=== PATIENT | female | born 1985 | race American Indian/Alaskan Native ===

== ENCOUNTER 2017-08-10 12:05 | Emergency (ER) | payer MEDICAID, OTHER ==
[2017-08-10 13:35] LABS: HCG,QUALITATIVE URINE NEGATIVE (NEGATIVE)
[2017-08-10 13:40] LABS: SQUAMOUS EPITHIAL < 1 /hpf (0-5); URINE BACTERIA RARE (<OCC)
[2017-08-10] MEDS ORDERED: Sodium Chloride 0.9% 1,000 ML IV ONE (14:01)
[2017-08-10] MEDS ORDERED: Iohexol 240 (50 ml) PO STA (14:01)
[2017-08-10 14:02] LABS: URINE BILIRUBIN NEGATIVE (NEGATIVE); URINE BLOOD NEGATIVE (NEGATIVE); URINE CLARITY Clear (Clear); URINE COLOR Yellow (YELLOW); URINE GLUCOSE (UA) NORMAL (Normal); URINE LEUKOCYTE ESTERASE NEG Leu/uL (Negative); URINE NITRATE NEGATIVE (NEGATIVE); URINE PROTEIN 1+ mg/dL (NEGATIVE)
--- NOTE | 2017-08-10 14:04 | C.PDOC ---
History Of Present Illness 32-year-old female, presents to the emergency department with multiple complaints. Patient states she has been experiencing three day duration of fever and body aches. Patient has not taken any medication for symptoms. Secondary complaint is pelvic pain that started a few months ago. Patient states she was seen by her doctor 04/16, and had an ultrasound which came back "normal." Patient is also complaining of rectal pain, that is intermittent for a few months. Denies any GI bleeding, nausea/vomiting, diarrhea, pain with BM, history of fibroids, dizziness, back pain, incontinence, or any other associated symptoms. No other complaints at this time. Time Seen by Provider: 08/10/17 12:46 Chief Complaint (Nursing): Flu-like Symptoms History Per: Patient History/Exam Limitations: no limitations Onset/Duration Of Symptoms: Days Past Medical History Reviewed: Historical Data, Nursing Documentation, Vital Signs Vital Signs: Last Vital Signs Temp 99.3 F 08/10/17 13:34 Pulse 99 H 08/10/17 16:15 Resp 20 08/10/17 16:15 BP 106/74 08/10/17 16:15 Pulse Ox 98 08/10/17 16:15 - Medical History PMH: Diabetes, Gastritis Family History: States: No Known Family Hx - Social History Hx Tobacco Use: No Hx Alcohol Use: No Hx Substance Use: No - Immunization History Hx Tetanus Toxoid Vaccination: No Hx Influenza Vaccination: No Hx Pneumococcal Vaccination: No Review Of Systems Except As Marked, All Systems Reviewed And Found Negative. Constitutional: Positive for: Fever, Chills, Malaise Cardiovascular: Negative for: Chest Pain Respiratory: Negative for: Shortness of Breath Gastrointestinal: Positive for: Rectal Pain. Negative for: Nausea, Vomiting Genitourinary: Positive for: Pelvic Pain Musculoskeletal: Positive for: Back Pain Neurological: Negative for: Weakness, Numbness, Headache, Dizziness Physical Exam - Physical Exam Appears: Non-toxic, No Acute Distress Skin: Warm, Dry, No Rash Head: Atraumatic, Normacephalic Eye(s): bilateral: Normal Inspection, PERRL Nose: Normal Oral Mucosa: Moist Lips: Normal Appearing Neck: Normal ROM Chest: Symmetrical Cardiovascular: Rhythm Regular, No Murmur Respiratory: Normal Breath Sounds, No Accessory Muscle Use Gastrointestinal/Abdominal: Soft, No Tenderness, No Guarding, No Rebound Rectal: Normal Exam, No Tenderness Back: No Paraspinal Tenderness Extremity: Normal ROM Neurological/Psych: Oriented x3, Normal Speech ED Course And Treatment - Laboratory Results Result Diagrams: 08/10/17 14:20 08/10/17 14:20 O2 Sat by Pulse Oximetry: 97 (on RA) Pulse Ox Interpretation: Normal Reevaluation Time: 17:07 Reassessment Condition: Improved (CT NO ACUTE FINDINGS. EXAM C/F INFLUENZA LIKE ILLNESS. CT REPORT GIVEN PT ADVISED NEED FOR GI/OBGYN) Disposition Counseled Patient/Family Regarding: Studies Performed, Diagnosis, Need For Followup, Rx Given - Disposition Referrals: [facility] [Outside] [facility] [Outside] Disposition: HOME/ ROUTINE Disposition Time: 17:08 Condition: IMPROVED Additional Instructions: YOUR ER TESTS ARE NORMAL. FOLLOW UP WITH A GI AND/OR OBGYN FOR FURTHER EVALUATION. Prescriptions: Oseltamivir [Tamiflu] 75 mg PO BID #9 cap Instructions: Influenza (ED), Pelvic Pain in Women (ED) Forms: [employer] ([place]er) - Clinical Impression Clinical Impression: Pelvic pain, Influenza-like illness, Rectal pain - Scribe Statement The provider has reviewed the documentation as recorded by the Scribe (Smooth Cooper) All medical record entries made by the Scribe were at my direction and personally dictated by me. I have reviewed the chart and agree that the record accurately reflects my personal performance of the history, physical exam, medical decision making, and the department course for this patient. I have also personally directed, reviewed, and agree with the discharge instructions and disposition.
[2017-08-10] MEDS ORDERED: Iohexol 240 (50 ml) ONE (14:08)
[2017-08-10] MEDS ORDERED: Sodium Chloride 0.9% 1,000 ML ONE (14:09)
[2017-08-10 14:23] LABS: BASO % 0.5 % (0.0-2.0); EOS % 0.2 % (0.0-4.0); HEMOGLOBIN 11.6 g/dL (11.0-16.0); LYMPH # 1.5 K/uL (1.0-4.3); LYMPH % 17.9 % (20.0-40.0); MEAN CORPUSCULAR HEMOGLOBIN 27.3 pg (27.0-31.0); MEAN CORPUSCULAR HGB CONC 32.5 g/dL (33.0-37.0); MEAN PLATELET VOLUME 8.1 fL (7.2-11.7); MONO # 0.8 K/uL (0.0-0.8); MONO % 10.1 % (0.0-10.0); NEUT # 5.9 K/uL (1.8-7.0); NEUT % 71.3 % (50.0-75.0); RBC 4.26 Mil/uL (3.80-5.20); RED CELL DISTRIBUTION WIDTH 14.5 % (11.5-14.5); WHITE BLOOD COUNT 8.3 K/uL (4.8-10.8)
[2017-08-10 14:37] LABS: ALBUMIN 3.9 g/dL (3.5-5.0); ALT/SGPT 21 U/L (9-52); AST/SGOT 36 U/L (14-36); BLOOD UREA NITROGEN 11 mg/dL (7-17); CALCIUM 8.2 mg/dl (8.6-10.4); GFR AFRICAN-AMERICAN > 60; GFR NON-AFRICAN AMERICAN > 60; LIPASE 33 U/L (23-300)
[2017-08-10] MEDS ORDERED: Iodixanol 320 MG/ML 100 ML BOTTLE IV ONE (15:49)
--- NOTE | 2017-08-10 16:50 | CT ---
PROCEDURE: CT Abdomen and Pelvis with oral and IV contrast. HISTORY: abd pain PELVIC, RECTAL COMPARISON: None available. TECHNIQUE: Contiguous axial images of the abdomen and pelvis. Oral and IV contrast was administered. Coronal and Sagittal reformats generated and reviewed. Contrast dose: 100 cc Visipaque IV. Radiation dose: Total exam DLP = 561.48 mGy-cm. This CT exam was performed using one or more of the following dose reduction techniques: Automated exposure control, adjustment of the mA and/or kV according to patient size, and/or use of iterative reconstruction technique. FINDINGS: LOWER THORAX: No visible consolidation, pleural effusion, or pneumothorax. LIVER: Unremarkable. GALLBLADDER AND BILE DUCTS: Unremarkable. PANCREAS: Unremarkable. SPLEEN: Unremarkable. ADRENALS: Unremarkable. KIDNEYS AND URETERS: The kidneys enhance symmetrically. No hydronephrosis or obstructing renal calculus. Too small to characterize right renal hypodensity; statistically likely a cyst. BLADDER: The urinary bladder appears unremarkable. REPRODUCTIVE: Uterus is present. 3.0 cm right ovarian cyst. APPENDIX: The appendix appears within normal limits of caliber. No secondary signs of acute appendicitis. BOWEL: The stomach is nondistended. The bowel loops appear within normal limits of caliber without evidence of intestinal obstruction. PERITONEUM: No significant free fluid. No definite free air. LYMPH NODES: No bulky lymphadenopathy identified. VASCULATURE: No aortic aneurysm. BONES: No acute osseous abnormality is detected. OTHER FINDINGS: 4.7 cm anterior abdominal wall hernia contains bowel without obstruction. IMPRESSION: 3.0 cm probable right ovarian cyst. Suggest pelvic ultrasound for further evaluation if indicated. 4.7 cm anterior abdominal wall hernia contains bowel without obstruction.
[2017-08-10 17:28] VITALS: BP 102/68; PULSE 89; RESP 18; TEMP 98.9; O2SAT 98
== END 2017-08-10 17:31 | disposition home or self-care (01) ==
LOC: C.ER 12:05
DX: J11.1 Influenza due to unidentified influenza virus with other respiratory manifestations (principal); R10.2 Pelvic and perineal pain; K62.89 Other specified diseases of anus and rectum
CPT/HCPCS: 74177; 80053; 81001; 83690; 84703; 85025; 87804; 96361; 96374; 99285; J1885; J7040; Q9966; Q9967

== ENCOUNTER 2017-08-21 09:37 | Day surgery (SDC) | payer OTHER ==
[2017-08-21] MEDS ORDERED: Propofol 10 mg/ml Inj (20 ML) ONE (10:47)
[2017-08-21 14:25] VITALS: TEMP 98; O2SAT 100
[2017-08-21 14:32] VITALS: BP 110/60; PULSE 70; RESP 21
== END 2017-08-21 12:20 | disposition home or self-care (01) ==
LOC: C.ENDO 09:37
PROVIDERS: ATTEND Internal Medicine
DX: K25.9 Gastric ulcer, unspecified as acute or chronic, without hemorrhage or perforation (principal); K44.9 Diaphragmatic hernia without obstruction or gangrene; K31.9 Disease of stomach and duodenum, unspecified; K29.60 Other gastritis without bleeding; R10.13 Epigastric pain; K42.9 Umbilical hernia without obstruction or gangrene; N83.201 Unspecified ovarian cyst, right side
CPT/HCPCS: 43239; 84703; 88305; J2001; J2704

== ENCOUNTER 2017-12-31 21:03 | Emergency (ER) | payer MEDICAID, OTHER ==
[2017-12-31 21:21] VITALS: RESP 16; O2SAT 100
[2017-12-31 21:53] LABS: HCG,QUALITATIVE URINE POSITIVE (NEGATIVE)
[2017-12-31] MEDS ORDERED: Alum-Mag Hydrox-Simethicone Susp (30 mL) PO STA (21:53)
--- NOTE | 2017-12-31 21:54 | C.PDOC ---
History Of Present Illness 32 year old female presents to the ED c/o vague epigastric pain for the past several months. Patient thinks she might be , patient reports she had a positive test at home. Patient states once a month she feel nauseous associated with an episode of vomiting. Patient denies fever, chills, diarrhea, lower abdominal pain, dysuria, hematuria, vaginal bleeding, vaginal discharge. Chief Complaint (Nursing): Abdominal Pain History Per: Patient History/Exam Limitations: no limitations Onset/Duration Of Symptoms: Days Current Symptoms Are (Timing): Still Present Severity: Mild Pain Scale Rating Of: 3 Location Of Pain/Discomfort: Epigastric Radiation Of Pain To:: None Quality Of Discomfort: "Pain" Associated Symptoms: Nausea, Vomiting Exacerbating Factors: None Alleviating Factors: None Recent travel outside of the [place]: No Additional History Per: Patient Abnormal Vaginal Bleeding: No Past Medical History Reviewed: Historical Data, Nursing Documentation, Vital Signs Vital Signs: Last Vital Signs Temp 98.7 F 12/31/17 22:43 Pulse 82 12/31/17 22:43 Resp 16 12/31/17 22:43 BP 110/78 12/31/17 22:43 Pulse Ox 100 12/31/17 22:43 - Medical History PMH: Diabetes, Gastritis, Migraine Denies: Chronic Kidney Disease Surgical History: No Surg Hx Family History: States: Unknown Family Hx - Social History Hx Tobacco Use: No Hx Alcohol Use: Yes Hx Substance Use: No - Immunization History Hx Tetanus Toxoid Vaccination: No Hx Influenza Vaccination: No Hx Pneumococcal Vaccination: No Review Of Systems Constitutional: Negative for: Fever, Chills Cardiovascular: Negative for: Chest Pain Respiratory: Negative for: Cough, Shortness of Breath Gastrointestinal: Positive for: Nausea, Vomiting, Abdominal Pain. Negative for : Diarrhea Genitourinary: Negative for: Dysuria, Hematuria, Vaginal Discharge, Vaginal Bleeding Musculoskeletal: Negative for: Back Pain Physical Exam - Physical Exam Appears: Non-toxic, No Acute Distress Skin: Normal Color, Warm, Dry Head: Atraumatic, Normacephalic Eye(s): bilateral: Normal Inspection Oral Mucosa: Moist Neck: Normal ROM, Supple Chest: Symmetrical Cardiovascular: Rhythm Regular, No Murmur Respiratory: Normal Breath Sounds, No Rales, No Rhonchi, No Wheezing Gastrointestinal/Abdominal: Soft, Tenderness (mild subjective epigastric), No Mass, No Guarding, No Rebound, Other (protuberant correlating with second trimester ) Extremity: Normal ROM, No Tenderness, No Swelling Neurological/Psych: Oriented x3, Normal Speech Gait: Steady ED Course And Treatment O2 Sat by Pulse Oximetry: 100 (ON RA) Pulse Ox Interpretation: Normal Medical Decision Making Medical Decision Making: Impression: dyspepsia/gastritis vs GERD. Plan: * Lidocaine 2% 15 ml PO * Maalox 30 ml PO * UA Reevaluation: Patient reports she feel better after the medications. Patient will be D/C home with prescriptions and a diagnosis of gastritis Disposition - Disposition Referrals: [facility] [Outside] Disposition: HOME/ ROUTINE Disposition Time: 03:51 Condition: FAIR Prescriptions: Famotidine [Pepcid] 20 mg PO BID #28 tab Vit No.126/Iron/Folic [Classic Tablet] 1 each PO DAILY #30 tablet Instructions: Gastritis, Medications and , Ulcer and Gastritis Diet Forms: [employer] (Maltese), Work Excuse Print Language: PORTUGUESE - Clinical Impression Clinical Impression: Gastritis - Scribe Statement The provider has reviewed the documentation as recorded by the Scribe Aly Gunn All medical record entries made by the Scribe were at my direction and personally dictated by me. I have reviewed the chart and agree that the record accurately reflects my personal performance of the history, physical exam, medical decision making, and the department course for this patient. I have also personally directed, reviewed, and agree with the discharge instructions and disposition.
[2017-12-31 21:58] LABS: SQUAMOUS EPITHIAL 4 /hpf (0-5); URINE BACTERIA RARE (<OCC); URINE BILIRUBIN NEGATIVE (NEGATIVE); URINE BLOOD NEGATIVE (NEGATIVE); URINE CLARITY Clear (Clear); URINE COLOR Yellow (YELLOW); URINE GLUCOSE (UA) NORMAL (Normal); URINE LEUKOCYTE ESTERASE NEG Leu/uL (Negative); URINE PROTEIN 1+ mg/dL (NEGATIVE)
[2017-12-31] MEDS ORDERED: Alum-Mag Hydrox-Simethicone Susp (30 mL) ONE (21:59)
[2017-12-31 22:44] VITALS: BP 110/78; PULSE 82; TEMP 98.7
== END 2017-12-31 22:45 | disposition home or self-care (01) ==
LOC: C.ER 21:03
DX: K29.70 Gastritis, unspecified, without bleeding (principal); E11.9 Type 2 diabetes mellitus without complications